=== PATIENT | male | born 1975 | race Caucasian/White ===

== ENCOUNTER 2020-05-16 07:45 | Emergency (ER) | payer MEDICAID, SELFPAY ==
[2020-05-16 07:46] VITALS: BP 156/109; PULSE 112; RESP 18; TEMP 36.6; O2SAT 99; BMI 20.2
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
[2020-05-16] MEDS: HYDROcodone Bitartrate/Apap 5/325 Tablet PO (08:36)
== END 2020-05-16 08:40 | disposition home or self-care (01) ==
LOC: ED 08:30
PROVIDERS: Emergency Provider Emergency Medicine
DX: S02.609A Fracture of mandible, unspecified, initial encounter for closed fracture (principal); Y09 Assault by unspecified means; Y93.9 Activity, unspecified; Y92.9 Unspecified place or not applicable; Y99.9 Unspecified external cause status; S22.42XA Multiple fractures of ribs, left side, initial encounter for closed fracture; F17.200 Nicotine dependence, unspecified, uncomplicated
CPT/HCPCS: 99283